=== PATIENT | female | born 1980 | race Caucasian/White ===

== ENCOUNTER 2019-03-13 15:36 | Emergency (ER) | payer BC ==
[~2019-03-13] VITALS: Ht 170.2 cm; Wt 104.3 kg
[~2019-03-13 15:36] MED LIST: DOCU-109 PO; OXYC1TAB15 PO
[2019-03-13 15:50] VITALS: BP 153/108
--- NOTE | 2019-03-13 17:21 | PHYS DOC ---
Past Medical History Past Medical History: Depression Past Surgical History: Appendectomy Additional Past Surgical Histo: wisdom Alcohol Use: Rarely Drug Use: None Adult General Chief Complaint Chief Complaint: ANIMAL BITE HPI HPI Patient is a 38 year old female who presents with patient states on this past Friday she has a Protonix 15 years old and blinded is going after another dog and didn't realize she was sitting there and jumped up and bit her. She sustained a puncture wound to the right anterior forearm and a puncture wound to the right and left inner breast. Those wounds look to be healing. The right forearm wound however has become large and red with cellulitis. There is no drainage. She stated last night she had a fever for 101. Patient states she went to urgent care yesterday and was given Augmentin. She states she's had 2 doses of it. Patient currently rates her pain a 7 out of 10. Review of Systems Review of Systems Integument: Dog bite to Right forearm. Denies rash or skin lesions [] All other systems were reviewed and found to be within normal limits, except as documented in this note. Allergies Allergies Allergies Coded Allergies Type Severity Reaction Last Updated Verified No Known Drug Allergies 09/23/13 No Physical Exam Physical Exam Constitutional: Well developed, well nourished, no acute distress, non-toxic appearance. [] HENT: Normocephalic, atraumatic, bilateral external ears normal, oropharynx moist, no oral exudates, nose normal. [] Eyes: PERRLA, EOMI, conjunctiva normal, no discharge. [] Neck: Normal range of motion, no tenderness, supple, no stridor. [] Cardiovascular:Heart rate regular rhythm, no murmur [] Lungs & Thorax: Bilateral breath sounds clear to auscultation [] Abdomen: Bowel sounds normal, soft, no tenderness, no masses, no pulsatile masses. [] Skin: Warm, dry, Right anterior forearm cellulitis and puncture wound erythema, Inner right and left breast puncture wounds that are healing. no rash. [] Back: No tenderness, no CVA tenderness. [] Extremities: No tenderness, no cyanosis, no clubbing, ROM intact, no edema. [] Neurologic: Alert and oriented X 3, normal motor function, normal sensory function, no focal deficits noted. [] Psychologic: Affect normal, judgement normal, mood normal. [] Current Patient Data Vital Signs Vital Signs Date Time Temp Pulse Resp B/P (MAP) Pulse Ox O2 Delivery O2 Flow Rate FiO2 03/13/19 15:50 98.6 88 17 153/108 (123) 99 Room Air 98.6 EKG EKG [] Radiology/Procedures Radiology/Procedures [] Course & Med Decision Making Course & Med Decision Making There Is a large area of redness to the anterior forearm. There is a single puncture wound in the middle that is hard and slightly raised but non-draining. Vital signs within normal limits at this time. Patient is afebrile this time. Patient is told to stay for IV antibiotics. Radial pulses strong and present. Skin pink warm and dry. Cap refill is less than 3 seconds. Patient has full range of motion of her wrist and fingers without any pain. Patient denies any numbness or tingling or coolness of the extremity. There is 1+ swelling to the area of cellulitis only. Patient is currently trying to find slightly take care of all of her rescue dogs at home. Patient states she may have to leave and go home and come back. Patient spoke to registration and they state that she would get 2 urgency room visit coughs. Patient is currently making phone calls. I have already spoken to Dr. Burgos about this patient. States this started her on Unasyn and vancomycin. Patient will be admitted, if she decided to stay. If not patient knows she will have to sign out AMA. 1726: Patient states she needs to sign out and will come back. Patient signed out AMA. Patient states she knows the risks of not coming back such as sepsis, blood infection, and even . [] Dragon Disclaimer Dragon Disclaimer This electronic medical record was generated, in whole or in part, using a voice recognition dictation system. Departure Departure Referrals: DANYELL PEREZ MD (PCP) FLORENTINO WALLS [employer]ITY RELATIONS SPECIALIST Mar 13, 2019 17:21
[2019-03-13] MEDS ORDERED: BUPR150T8 PO (23:20)
[2019-03-13] MEDS ORDERED: LEXAPRO20 MG PO (23:20)
[2019-03-13] MEDS ORDERED: NORG1TAB70 PO (23:20)
== END 2019-03-13 17:25 | disposition left against medical advice (07) ==
LOC: ER 15:36
DX: S51.831A Puncture wound without foreign body of right forearm, initial encounter (principal); S21.031A Puncture wound without foreign body of right breast, initial encounter; S21.032A Puncture wound without foreign body of left breast, initial encounter; F32.9 Major depressive disorder, single episode, unspecified; Z90.49 Acquired absence of other specified parts of digestive tract; Z98.890 Other specified postprocedural states; W54.0XXA Bitten by dog, initial encounter; Y93.89 Activity, other specified; Y92.89 Other specified places as the place of occurrence of the external cause; Y99.8 Other external cause status
CPT/HCPCS: 99281

== ENCOUNTER 2019-03-13 18:43 | Inpatient (IN) | payer BC ==
[~2019-03-13] VITALS: Ht 170.2 cm; Wt 104.0 kg
[2019-03-13] MEDS ORDERED: IV NORMAL SALINE 1000ML BAG 1,000 ML IV SCH (18:59)
--- NOTE | 2019-03-13 19:02 | PHYS DOC ---
Past Medical History Past Medical History: Depression Past Surgical History: Appendectomy Additional Past Surgical Histo: wisdom Alcohol Use: Rarely Drug Use: None Adult General Chief Complaint Chief Complaint: ANIMAL BITE HPI HPI Patient is a 38 year old female who presents with patient states on this past Friday she has a Protonix 15 years old and blinded is going after another dog and didn't realize she was sitting there and jumped up and bit her. She sustained a puncture wound to the right anterior forearm and a puncture wound to the right and left inner breast. Those wounds look to be healing. The right forearm wound however has become large and red with cellulitis. There is no dr durand. She stated last night she had a fever for 101. Patient states she went to urgent care yesterday and was given Augmentin. She states she's had 2 doses of it. Patient currently rates her pain a 7 out of 10. Review of Systems Review of Systems Constitutional: fever or chills [] Integument:cellulitis and bite wound to right arm. Denies rash or skin lesions [] All other systems were reviewed and found to be within normal limits, except as documented in this note. Current Medications Current Medications Current Medications Medications (Trade) Dose Ordered Sig/Andra Start Time Stop Time Status Last Admin Dose Admin Ondansetron HCl (Zofran) 4 mg 1X ONCE 03/13/19 19:30 03/13/19 19:31 Piperacillin Sod/ Tazobactam Sod 3.375 gm/Sodium Chloride 50 ml @ 100 mls/hr 1X ONCE 03/13/19 19:45 03/13/19 20:14 Sodium Chloride 1,000 ml @ 1,000 mls/hr Q1H 03/13/19 18:59 03/13/19 19:58 Vancomycin HCl (Vanco Per Pharmacy) 1 each PRN DAILY PRN 03/13/19 19:15 UNV Vancomycin HCl 2 gm/Sodium Chloride 500 ml @ 250 mls/hr 1X ONCE 03/13/19 20:30 03/13/19 22:29 Allergies Allergies Allergies Coded Allergies Type Severity Reaction Last Updated Verified No Known Drug Allergies 09/23/13 No Physical Exam Physical Exam Constitutional: Well developed, well nourished, no acute distress, non-toxic appearance. [] HENT: Normocephalic, atraumatic, bilateral external ears normal, oropharynx moist, no oral exudates, nose normal. [] Eyes: PERRLA, EOMI, conjunctiva normal, no discharge. [] Neck: Normal range of motion, no tenderness, supple, no stridor. [] Cardiovascular:Heart rate regular rhythm, no murmur [] Lungs & Thorax: Bilateral breath sounds clear to auscultation [] Abdomen: Bowel sounds normal, soft, no tenderness, no masses, no pulsatile ma sses. [] Skin: Warm, dry, Right forearm erythema, no rash. [] Back: No tenderness, no CVA tenderness. [] Extremities: No tenderness, no cyanosis, no clubbing, ROM intact, no edema. [] Neurologic: Alert and oriented X 3, normal motor function, normal sensory function, no focal deficits noted. [] Psychologic: Affect normal, judgement normal, mood normal. [] Current Patient Data Vital Signs Vital Signs Date Time Temp Pulse Resp B/P (MAP) Pulse Ox O2 Delivery O2 Flow Rate FiO2 03/13/19 18:52 98.3 95 16 155/102 (119) 98 Room Air 98.3 Lab Values Laboratory Tests Test 03/13/19 19:01 White Blood Count 7.9 x10^3/uL (4.0-11.0) Red Blood Count 4.62 x10^6/uL (3.50-5.40) Hemoglobin 14.5 g/dL (12.0-15.5) Hematocrit 42.0 % (36.0-47.0) Mean Corpuscular Volume 91 fL (79-100) Mean Corpuscular Hemoglobin 31 pg (25-35) Mean Corpuscular Hemoglobin Concent 35 g/dL (31-37) Red Cell Distribution Width 13.7 % (11.5-14.5) Platelet Count 295 x10^3/uL (140-400) Neutrophils (%) (Auto) 65 % (31-73) Lymphocytes (%) (Auto) 26 % (24-48) Monocytes (%) (Auto) 8 % (0-9) Eosinophils (%) (Auto) 1 % (0-3) Basophils (%) (Auto) 1 % (0-3) Neutrophils # (Auto) 5.1 x10^3/uL (1.8-7.7) Lymphocytes # (Auto) 2.1 x10^3/uL (1.0-4.8) Monocytes # (Auto) 0.6 x10^3/uL (0.0-1.1) Eosinophils # (Auto) 0.0 x10^3/uL (0.0-0.7) Basophils # (Auto) 0.1 x10^3/uL (0.0-0.2) Laboratory Tests 03/13/19 19:01 EKG EKG [] Radiology/Procedures Radiology/Procedures [] Course & Med Decision Making Course & Med Decision Making Patient is back for admission. There Is a large area of redness to the anterior forearm. There is a single puncture wound in the middle that is hard and slight ly raised but non-draining. Vital signs within normal limits at this time. Patient is afebrile this time. Patient is told to stay for IV antibiotics. Radial pulses strong and present. Skin pink warm and dry. Cap refill is less than 3 seconds. Patient has full range of motion of her wrist and fingers without any pain. Patient denies any numbness or tingling or coolness of the extremity. There is 1+ swelling to the area of cellulitis only. Patient is currently trying to find slightly take care of all of her rescue dogs at home. Patient states she may have to leave and go home and come back. Patient spoke to registration and they state that she would get 2 urgency room visit coughs. Patient is currently making phone calls. Tetanus up to date. Dogs vaccinations are up to date. I have already spoken to Dr. Burgos about this patient. I let him know she is back for admission. States this started her on Zosyn and vancomycin. Dragon Disclaimer Dragon Disclaimer This electronic medical record was generated, in whole or in part, using a voice recognition dictation system. Departure Departure Impression: Primary Impression: Cellulitis Disposition: 09 ADMITTED INPATIENT Admitting Physician: HIMS Condition: STABLE Referrals: DANYELL PEREZ MD (PCP) Problem Qualifiers Primary Impression: Cellulitis Site of cellulitis: extremity Site of cellulitis of extremity: upper extremity Laterality: right Qualified Codes: L03.113 - Cellulitis of right upper limb FLORENTINO WALLS APRN Mar 13, 2019 19:02
[2019-03-13] MEDS ORDERED: VANCOMYCIN PER PHARMACY MC PRN (19:15)
[2019-03-13 19:23] LABS: BASO # 0.1 x10^3/uL (0.0-0.2); BASO % 1 % (0-3); EOS % 1 % (0-3); HEMOGLOBIN 14.5 g/dL (12.0-15.5); LYMPH # 2.1 x10^3/uL (1.0-4.8); LYMPH % 26 % (24-48); MEAN CORPUSCULAR HEMOGLOBIN 31 pg (25-35); MEAN CORPUSCULAR HGB CONC 35 g/dL (31-37); MEAN CORPUSCULAR VOLUME 91 fL (79-100); MONO # 0.6 x10^3/uL (0.0-1.1); MONO % 8 % (0-9); NEUT # 5.1 x10^3/uL (1.8-7.7); NEUT % 65 % (31-73); PLATELET COUNT 295 x10^3/uL (140-400); RED BLOOD COUNT 4.62 x10^6/uL (3.50-5.40); RED CELL DISTRIBUTION WIDTH 13.7 % (11.5-14.5); WHITE BLOOD COUNT 7.9 x10^3/uL (4.0-11.0)
[2019-03-13] MEDS ORDERED: ONDANSETRON PF 4 MG/2 ML VIAL. IV ONE (19:30)
[2019-03-13] MEDS ORDERED: ONDANSETRON PF 4 MG/2 ML VIAL. IV PRN (19:30)
[2019-03-13] MEDS ORDERED: fentaNYL PF VIAL 100 MCG/2 ML VIAL IV PRN (19:30)
[2019-03-13] MEDS ORDERED: ACETAMINOPHEN 325 MG TABLET. PO PRN (19:30)
[2019-03-13 19:33] LABS: CALCIUM 9.2 mg/dL (8.5-10.1); CREATININE 0.9 mg/dL (0.6-1.0); GFR 70.5; POTASSIUM 3.6 mmol/L (3.5-5.1)
[2019-03-13 19:39] LABS: ALBUMIN 3.8 g/dL (3.4-5.0); ALBUMIN/GLOBULIN RATIO 1.1 (1.0-1.7); C-REACTIVE PROTEIN 77.9 mg/L (0-3.3); TOTAL BILIRUBIN 0.5 mg/dL (0.2-1.0); TOTAL PROTEIN 7.2 g/dL (6.4-8.2)
[2019-03-13] MEDS ORDERED: PIPERACILLIN/TAZOBACTAM 3.375 GM in IV NORMAL SALINE 50ML 50 ML IV ONE (19:45)
[2019-03-13] MEDS ORDERED: VANCOMYCIN 2 GM in IV NORMAL SALINE 500ML BAG 500 ML IV ONE (20:30)
[2019-03-13] MEDS: VANCOMYCIN PER PHARMACY MC PRN (20:51)
--- NOTE | 2019-03-13 21:01 | NUR ---
Pharmacy Vancomycin Dosing Note S:Consulted to monitor and dose vancomycin started 03/13/19. O:CARRIE DIXON is a 38 year old F with Cellulitis . Height: 5 feet, 7 inches Weight: 104.791047 kg [place] Body Weight: 61.60 Adjusted Body Weight: 78.56 Dosing Weight: Actual Other Antibiotics: LABS: Last BUN: 11 Last Creatinine: 0.9 Creatinine Clearance: 106 mL/min Last WBC: 7.9 Last Procalcitonin: Tmax (past 24 hours): Microbiology: I/O: Drug Levels: Last level: on at Last dose given at Vancomycin Dosing: Loading Dose: 2000 mg x1 Dosing Weight: Actual Target Trough: 10-20 A: Based on: HT, WT AND RENAL FUNCTION P: 1. Begin Vancomycin 1500 mg IV q12h 2. Follow up Trough level on 03/15/19 at 0830 3. Pharmacy will continue to monitor, follow and adjust therapy as needed. ANTHONY KELLY, [facility], 03/13/19 0258
[2019-03-13 21:20] VITALS: BP 152/104
[2019-03-13 23:00] VITALS: BP 138/85
[2019-03-13] MEDS ORDERED: NORG1TAB70 PO (23:20)
[2019-03-13] MEDS ORDERED: LEXAPRO20 MG PO (23:20)
[2019-03-13] MEDS ORDERED: BUPR150T8 PO (23:20)
[2019-03-14 03:04] VITALS: BP 114/68
[2019-03-14 07:55] VITALS: BP 116/82
[2019-03-14] MEDS: VANCOMYCIN 1.5 GM in IV NORMAL SALINE 500ML BAG 500 ML IV SCH ×2 (09:20→21:10)
[2019-03-14 11:59] VITALS: BP 156/98
--- NOTE | 2019-03-14 13:00 | PDOC ---
Infectious Disease Note Vital Sign Vital Signs Vital Signs Date Time Temp Pulse Resp B/P (MAP) Pulse Ox O2 Delivery O2 Flow Rate FiO2 03/14/19 07:55 98.2 63 16 116/82 (93) 97 Room Air 98.2 Labs Lab Laboratory Tests Test 03/13/19 19:01 White Blood Count 7.9 x10^3/uL (4.0-11.0) Red Blood Count 4.62 x10^6/uL (3.50-5.40) Hemoglobin 14.5 g/dL (12.0-15.5) Hematocrit 42.0 % (36.0-47.0) Mean Corpuscular Volume 91 fL (79-100) Mean Corpuscular Hemoglobin 31 pg (25-35) Mean Corpuscular Hemoglobin Concent 35 g/dL (31-37) Red Cell Distribution Width 13.7 % (11.5-14.5) Platelet Count 295 x10^3/uL (140-400) Neutrophils (%) (Auto) 65 % (31-73) Lymphocytes (%) (Auto) 26 % (24-48) Monocytes (%) (Auto) 8 % (0-9) Eosinophils (%) (Auto) 1 % (0-3) Basophils (%) (Auto) 1 % (0-3) Neutrophils # (Auto) 5.1 x10^3/uL (1.8-7.7) Lymphocytes # (Auto) 2.1 x10^3/uL (1.0-4.8) Monocytes # (Auto) 0.6 x10^3/uL (0.0-1.1) Eosinophils # (Auto) 0.0 x10^3/uL (0.0-0.7) Basophils # (Auto) 0.1 x10^3/uL (0.0-0.2) Sodium Level 139 mmol/L (136-145) Potassium Level 3.6 mmol/L (3.5-5.1) Chloride Level 103 mmol/L (98-107) Carbon Dioxide Level 27 mmol/L (21-32) Anion Gap 9 (6-14) Blood Urea Nitrogen 11 mg/dL (7-20) Creatinine 0.9 mg/dL (0.6-1.0) Estimated GFR (Cockcroft-Gault) 70.5 BUN/Creatinine Ratio 12 (6-20) Glucose Level 88 mg/dL (70-99) Lactic Acid Level 0.9 mmol/L (0.4-2.0) Calcium Level 9.2 mg/dL (8.5-10.1) Total Bilirubin 0.5 mg/dL (0.2-1.0) Aspartate Amino Transf (AST/SGOT) 9 U/L (15-37) Alanine Aminotransferase (ALT/SGPT) 10 U/L (14-59) Alkaline Phosphatase 58 U/L (46-116) C-Reactive Protein, Quantitative 77.9 mg/L (0-3.3) Total Protein 7.2 g/dL (6.4-8.2) Albumin 3.8 g/dL (3.4-5.0) Albumin/Globulin Ratio 1.1 (1.0-1.7) Objective Assessment Dog bite to right arm and breasts -Poodle mix - reportedly up to date on vaccinationa -Last tetanus < 1 yr Cellulitis right forearm - improving h/o MRSA h/o E. coli Obesity Plan Plan of Care Vladimir for now Local wound care D/w Dr. Burgos Thank you Had tetanus in spring Obtain forearm Xray r/o foreign body Hopefully home in am Attending Co-Sign Attending Co-Sign The patient was seen and interviewed as well as examined at the bedside. The chart was reviewed. The case was discussed. Agree with the plan of care. MARCELLA COELHO APRN Mar 14, 2019 13:00 ANTWON GONZALEZ MD Mar 14, 2019 17:07
[2019-03-14] MEDS: VANCOMYCIN PER PHARMACY MC PRN (13:28)
--- NOTE | 2019-03-14 14:19 | SSS ---
ADMIT DATE: 03/13/2019 CHIEF COMPLAINT: Dog bite. HISTORY OF PRESENT ILLNESS: The patient is a pleasant middle-aged female who got bit by her Pitbull. Apparently the dog is blind. He was fighting over some food and bit her on the arm. She took some Augmentin for a couple of days, but did not seem like it was getting better, so she came in last night. I talked to the ER doctor last night. We are going to admit her right away but then she went home for a while and she came back. Now, she has been admitted for observation. This morning, she is being examined in the medical floor where Infectious Disease is here as well. It looks like the wound is probably getting better. The patient agrees. We are probably going to let her go, but we are going to let Dr. Lyle make the final call. PAST MEDICAL HISTORY: Depression and appendectomy. ALLERGIES: None. FAMILY HISTORY: Diabetes. SOCIAL HISTORY: She does not drink, smoke or take drugs. MEDICATIONS: Reviewed, please refer to the MRAD. REVIEW OF SYSTEMS: GENERAL: No history of weight change, weakness or fevers. SKIN: No bruising, hair changes or rashes. EYES: No blurred, double or loss of vision. NOSE AND THROAT: No history of nosebleeds, hoarseness or sore throat. HEART: No history of palpitations, chest pain or shortness of breath on exertion. LUNGS: Denies cough, hemoptysis, wheezing or shortness of breath. GASTROINTESTINAL: Denies changes in appetite, nausea, vomiting, diarrhea or constipation. GENITOURINARY: No history of frequency, urgency, hesitancy or nocturia. NEUROLOGIC: Denies history of numbness, tingling, tremor or weakness. PSYCHIATRIC: No history of panic, anxiety or depression. ENDOCRINE: No history of heat or cold intolerance, polyuria or polydipsia. EXTREMITIES: Denies muscle weakness, joint pain, pain on walking or stiffness. PHYSICAL EXAMINATION: VITALS: Within normal limits and are stable. GENERAL: No apparent distress. Alert and oriented. HEENT: Normal cephalic atraumatic, external auditory canals are patent EYES: Extraocular muscles are intact, pupils are equally round and reactive to light and accommodation MUSCULOSKELETAL: Well developed, well nourished, good range of motion ENDOCRINE: No thyromegaly was palpated LYMPHATICS: No cervical chain or axillary nodes were noted HEMATOPOIETIC: No bruising NECK: Supple, no JVD, no thyromegaly was noted. LUNGS: Clear to auscultation in all lung rosenberg without rhonchi or wheezing. HEART: RRR, S1, S2 present. Peripheral pulses intact, no obvious murmurs were noted. ABDOMEN: Soft, nontender. Positive bowel sounds no organomegaly, normal bowel sounds. EXTREMITIES: The right arm has a large reddened area and it is slightly bruised. There is a dog bite in the middle of it. NEUROLOGIC: Normal speech, normal tone. A & O x3, moves all extremities, no obvious focal deficits. PSYCHIATRIC: Normal affect, normal mood. Stable. SKIN: No ulcerations or rashes, good skin turgor, no jaundice. VASCULAR: Good capillary refill, neurovascular bundle appears to be intact.: ASSESSMENT AND PLAN: Resolving dog bite suspect this probably would respond to Augmentin, but we will await Dr. Alan's input. For now, home meds, PT, OT, DVT prophylaxis and full code. DISPOSITION: Home if she can go this evening. JAVIER TATE DO DR: MARIO ALBERTO/mame JOB#: [id number] / [id number]
[2019-03-14] MEDS: PIPERACILLIN/TAZOBACTAM 3.375 GM in IV NORMAL SALINE 50ML 50 ML IV SCH ×3 (15:35→23:30)
[2019-03-14 15:59] VITALS: BP 146/101
[2019-03-14 19:00] VITALS: BP 132/83
[2019-03-14] MEDS: LACTOBACILLUS RHAMNOSUS GG 1 CAPSULE. PO SCH (21:10)
[2019-03-14 23:00] VITALS: BP 119/82
[2019-03-15] MEDS ORDERED: ACETAMINOPHEN 325 MG TABLET. PO PRN
[2019-03-15 03:00] VITALS: BP 135/79
[2019-03-15] MEDS: PIPERACILLIN/TAZOBACTAM 3.375 GM in IV NORMAL SALINE 50ML 50 ML IV SCH (05:43)
[2019-03-15 07:00] VITALS: BP 144/87
--- NOTE | 2019-03-15 07:45 | RAD ---
Examination: FOREARM RIGHT History: Dog bite. Foreign body question. Pain. Comparison/Correlation: None Findings: Frontal and lateral views of the right forearm were obtained. Joint spaces are normal. No fracture or bony destruction. Soft tissues are unremarkable. No radiopaque foreign body. Impression: No suspicious process. Electronically signed by: Satish Whaley MD (03/15/2019 7:43 AM) [facility]
--- NOTE | 2019-03-15 08:23 | NUR ---
SW following pt for dc planning. Chart reviewed. Pt lives at home and presented in ER after her dog bit her. ID following. SW will be available as needed.
[2019-03-15 09:09] LABS: CREATININE 0.8 mg/dL (0.6-1.0); GFR 80.7
[2019-03-15 09:29] LABS: VANC TR 8.8 mcg/mL (10.0-20.0)
--- NOTE | 2019-03-15 09:29 | CONS ---
DATE OF CONSULTATION: 03/14/2019 Chandrakant Claire dictating for Dr. Antwon Rivers, Infectious Disease. REQUESTING PHYSICIAN: Referred by Holli Herrmann APRN. REASON FOR CONSULTATION: Cellulitis. HISTORY OF PRESENT ILLNESS: The patient is a 38-year-old female who about 5 days ago, was feeding her dogs. She sat down on the couch with one of her dogs, when the other jumped up on her lap and bit her chest through her clothing and right arm. She believes the dog was trying to bite the other dog near her over food. In any event, she washed the area with rubbing alcohol and chlorhexidine using a syringe. A few days later, she noticed her right arm and over the next couple of days, she noticed a worsening redness, swelling and pain of right forearm. She was seen at urgent care center and prescribed Augmentin. After 2 doses, the area continued to worsen, which prompted an ER visit. She denies fevers, chills, sweats or bodyaches. Her WBC count was normal on admission. She is currently on vancomycin and Zosyn. The patient has 3 dogs of her own. She fosters 2 other dogs, one of which had puppies. The dog that bit her was a poodle mix and current on vaccinations. Apparently, animal control was called and picked up the dog. She said she received a tetanus shot earlier this year. Other than the recent Augmentin, no other antibiotics within the last several months. 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 PAST MEDICAL HISTORY: MRSA, depression, history of E. coli in urine. PAST SURGICAL HISTORY: Appendectomy, wisdom tooth extraction down. FAMILY HISTORY: Noncontributory. 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 ALLERGIES: No known drug allergies. MEDICATIONS: Vancomycin, Zosyn, probiotics, Zofran, Tylenol. REVIEW OF SYSTEMS: Per HPI, otherwise all other review of systems are negative. PHYSICAL EXAMINATION: VITAL SIGNS: Temperature is 98.2, blood pressure 116/82, heart rate 63, respiratory rate 16, pulse oximetry 97% on room air. BMI 35. GENERAL: The patient is propped up in bed, alert, in no apparent distress. HEENT: Pupils equally round, reactive. Oral cavity, pharynx pink and moist. NECK: Supple. LUNGS: Clear to auscultation. HEART: S1, S2. ABDOMEN: Obese, soft, nontender with bowel sounds present. EXTREMITIES: No gross edema or cyanosis. SKIN: Warm to touch without signs of generalized rash. She has a small scab medial aspect of each breasts without signs of infection. Right forearm is mildly swollen, red, tender with some bruising. NEUROLOGIC: Alert and oriented x 3. Peripheral IV. LABORATORY DATA: On admission; WBC 7.9, hemoglobin 14.5, platelets 295,000. Electrolytes are unremarkable. Creatinine 0.9, BUN 11, glucose 88. Lactic acid 0.9. AST 9, ALT 10, total bilirubin 0.5, albumin 3.8. IMPRESSION: 1. Dog bite to right arm and breasts. 2. Cellulitis of right forearm. 3. History of MRSA. 4. History of Escherichia coli in urine. 5. Obesity. PLAN: Continue the vancomycin and Zosyn for now. The dog reportedly is up-to-date on vaccinations and is in the care of animal control. The patient had a tetanus shot earlier this year. We will obtain an x-ray of her right forearm to rule out foreign body. Thank you, Holli Herrmann, for asking us to participate in this patient's care. Should you have further questions or concerns, please call. The patient seen and examined and plan of care implemented by Dr. Antwon Rivers. ANTWON RIVERS MD DR: MIGUE/mame JOB#: [id number] / [id number]
[2019-03-15] MEDS: LACTOBACILLUS RHAMNOSUS GG 1 CAPSULE. PO SCH (10:34)
[2019-03-15 10:54] VITALS: BP 127/78
--- NOTE | 2019-03-15 10:54 | PDOC ---
Infectious Disease Note Subjective Subjective Doing better and wanting to go home No F/C/S/N/V/D/SOA/rash and eating well Less pain and swelling ROS ROS o/w neg Vital Sign Vital Signs Vital Signs Date Time Temp Pulse Resp B/P (MAP) Pulse Ox O2 Delivery O2 Flow Rate FiO2 03/15/19 07:00 98.0 66 18 144/87 (106) 95 Room Air 98.0 Physical Exam PHYSICAL EXAM GENERAL: The patient is propped up in bed, alert, in no apparent distress. HEENT: Pupils equally round, reactive. Oral cavity, pharynx pink and moist. NECK: Supple. LUNGS: Clear to auscultation. HEART: S1, S2. ABDOMEN: Obese, soft, nontender with bowel sounds present. EXTREMITIES: No gross edema or cyanosis. SKIN: Warm to touch without signs of generalized rash. She has a small scab medial aspect of each breasts without signs of infection - she stated better today. Right forearm is mildly swolle but less, less red, tenderness resolving with some bruising. NEUROLOGIC: Alert and oriented x 3. Peripheral IV. Labs Lab Laboratory Tests Test 03/15/19 08:15 Creatinine 0.8 mg/dL (0.6-1.0) Estimated GFR (Cockcroft-Gault) 80.7 Vancomycin Level Trough 8.8 mcg/mL (10.0-20.0) Vancomycin Last Dose Date 03/14/19 Vancomycin Last Dose Time 2100 Micro Microbiology 03/13/19 Blood Culture - Preliminary, Resulted NO GROWTH AFTER 1 DAY Objective Assessment Dog bite to right arm and breasts -Poodle mix - reportedly up to date on vaccinationa -Last tetanus < 1 yr Cellulitis right forearm - improving XRAY - neg h/o MRSA h/o E. coli Obesity Plan Plan of Care D/c vanc and Zosyn Can go home and complete Augmentin she has at home but also some Doxy with h/o MRSA Local wound care Ok to d/c home and can F/u next week in ID office ANTWON GOZNALEZ MD Mar 15, 2019 10:54
[2019-03-15] MEDS ORDERED: DOXYCYCLINE HYCLATE 100 MG TABLET PO ONE (11:00)
[2019-03-15] MEDS ORDERED: AMOXICILLIN/K CLAV 875/125MG TABLET. PO ONE (11:00)
--- NOTE | 2019-03-15 11:14 | PDOC ---
[employer] PROGRESS NOTE Chief Complaint Chief Complaint Right forearm cellulitis 2/2 dog bite Appendicitis Depression History of Present Illness History of Present Illness 03/15/19 Pt seen and examined Pt is in good spirts and ready for d/c NIKKIE pt regarding her care DW RN regarding her care Reviewed pt's chart Vitals/I&O Vitals/I&O: Vital Signs Date Time Temp Pulse Resp B/P (MAP) Pulse Ox O2 Delivery O2 Flow Rate FiO2 03/15/19 10:54 98.2 68 18 127/78 (94) 96 Room Air 98.2 I & O 03/14/19 03/14/19 03/15/19 15:00 23:00 07:00 Intake Total 240 ml 400 ml 550 ml Output Total 0 ml Balance 240 ml 400 ml 550 ml Physical Exam General: Alert, Oriented X3, Cooperative Heart: Regular rate, Normal S1, Normal S2 Lungs: Clear Abdomen: Normal bowel sounds, Soft, No tenderness Extremities: No clubbing, No cyanosis, Other (Right forearm has no edema or erythema with a mild hematoma that is resolving) Skin: No rashes, No significant lesion Labs Labs: Laboratory Tests Test 03/15/19 08:15 Creatinine 0.8 mg/dL (0.6-1.0) Estimated GFR (Cockcroft-Gault) 80.7 Vancomycin Level Trough 8.8 mcg/mL (10.0-20.0) Vancomycin Last Dose Date 03/14/19 Vancomycin Last Dose Time 2100 Assessment and Plan Assessmemt and Plan Problems Medical Problems: (1) Cellulitis Status: Acute Assessment Right forearm cellulitis 2/2 dog bite Appendicitis Depression Plan Wound care IV Abx Discharge when okay with ID Continue Augmentin at home Comment Review of Relevant I have reviewed the following items nadira (where applicable) has been applied. Medications: Current Medications Medications (Trade) Dose Ordered Sig/Andra Route PRN Reason Start Time Stop Time Status Last Admin Dose Admin Vancomycin HCl (Vancomycin Trough Level) 1 each 1X ONCE MC 03/15/19 08:30 03/15/19 08:31 DC 03/15/19 08:30 Piperacillin Sod/ Tazobactam Sod 3.375 gm/Sodium Chloride 50 ml @ 100 mls/hr Q6HRS IV 03/14/19 14:00 03/15/19 10:54 DC 03/15/19 05:43 Lactobacillus Rhamnosus (Culturelle) 1 cap BID PO 03/14/19 21:00 03/15/19 10:34 Acetaminophen (Tylenol) 650 mg PRN Q6HRS PRN PO MILD PAIN 1-3 03/15/19 00:00 03/14/19 23:54 JAVIER TATE III DO Mar 15, 2019 11:13
[2019-03-15] MEDS ORDERED: AMOX1TAB61 PO (12:14)
[2019-03-15] MEDS ORDERED: DOXY100T PO (12:14)
--- NOTE | 2019-03-15 13:30 | NUR ---
Discharge Note: Patient was discharge home with self care. Patients IV was discontinued without any complications per KEYSHA. Patients mother at the bedside at the time of discharge education. Patient was given discharge summary/instructions, follow-ups, and educational material. Patients prescription for Doxycycline was called into patients preferred pharmacy. Patient ambulated to the main entrance with all personal belongings accompanied by KEYSHA Cohen, where her mother was waiting for her to take her to her car by the ER entrance.
--- NOTE | 2019-03-15 23:04 | DS ---
DATE OF DISCHARGE: 03/15/2019 ADMISSION DIAGNOSIS: Dog bite. DISCHARGE DIAGNOSIS: Resolving right brachial arm dog bite. HOSPITAL COURSE: The patient is a pleasant 38-year-old female, who presented with a right dog bite on her arm. She was admitted. We gave her IV antibiotics. Consulted Infectious Disease. This morning, I saw and examined her. She was doing great. We planned to discharge on p.o. doxycycline. DISPOSITION: Home. ACTIVITY: As tolerated. DIET: Low sodium. DISCHARGE MEDICATIONS: Please see MRAD. TOTAL TIME: 32 minutes. JAVIER TATE DO DR: MARIO ALBERTO/mame JOB#: [id number] / [id number]
== END 2019-03-15 13:00 | disposition home or self-care (01) | DRG 603 ==
LOC: ER 18:43 → 5 SOUTH 20:20
PROVIDERS: ADMIT Internal Medicine; ATTEND Internal Medicine
DX: L03.113 Cellulitis of right upper limb (principal); W54.0XXA Bitten by dog, initial encounter; E66.9 Obesity, unspecified; F32.9 Major depressive disorder, single episode, unspecified; H54.7 Unspecified visual loss; K37 Unspecified appendicitis; S41.151A Open bite of right upper arm, initial encounter; Z83.3 Family history of diabetes mellitus; Z86.14 Personal history of Methicillin resistant Staphylococcus aureus infection; Z90.49 Acquired absence of other specified parts of digestive tract; Z68.35 Body mass index [BMI] 35.0-35.9, adult; Y93.89 Activity, other specified; Y92.89 Other specified places as the place of occurrence of the external cause; Y99.8 Other external cause status
CPT/HCPCS: 36415; 73090; 80053; 80202; 82565; 83605; 85025; 86140; 87040; J2405; J2543; J3370; J7030; J7040; G0378